=== PATIENT | female | born 2000 | race Caucasian/White ===

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

== ENCOUNTER 2023-12-12 13:12 | Inpatient (IN) ==
[2023-12-12] MEDS: NIFEdipine 10 MG CAP PO STA ×2 (13:50→17:46)
[2023-12-12] MEDS ORDERED: CALCIUM CARBONATE 500 MG CHEWABLE TAB PO PRN (13:50)
[2023-12-12] MEDS ORDERED: LIDOCAINE 1% LOCAL 20 ML VIAL INFIL PRN (13:50)
[2023-12-12] MEDS ORDERED: OXYTOCIN 30 UNITS/NSS 30 UNITS/500 ML BAG IV PRN ×2 (13:50→22:50)
[2023-12-12] MEDS ORDERED: Patient's HEIGHT &/or WEIGHT Needed STA (13:58)
[2023-12-12] MEDS: NIFEdipine 10 MG CAP ONE (14:15)
--- NOTE | 2023-12-12 14:18 | History & Physical Report ---
Date of Service December 12, 2023 Assessment & Plan (1) Encounter for induction of labor: (2) 38 weeks gestation of : (3) Poor patient attendance of care: (4) Severe preeclampsia: Plan admit, labs. iv. start magnesium, pit and kefzol for gbs unknown. urine tox for poor care. intial bps severe and improved with 20mg nifedipine and then 40mg 20min later. fhts categ 1. discussed with couple at length dx and recommendations to move toward delivery. no evidence of hsv lesions and therefore ok to proceed with vaginal delivery, pt denies sx of hsv but aware she needs to alert us if does feel sx developing as may not be able to proceed with vaginal delivery. Addendum: pt bps now not severe range. labs reviewed, hct 31% but plts normal. lfts and creat normal. magnesium infusing and pit to be started. kefzol and arom when appropriate. Admission and Anticipated Discharge Date Admission Date: December 12, 2023 History of Present Illness Chief Complaint: 23yo at 38wks dannielle presents with cc of elevated bps and poor care. She was seen in office today because she says had transportation. She notes at least a couple week history of on and off bowen's, and has taken tylenol. Today feels off, "not quite there", can have on and off visual change. Not current. Currently feels a pain in ruq but not severe but present. No epigastric pain. No n/v. Some swelling, her face in particular is swollen. She went to office for routine visit and bp markedly elevated and with these sx--was sent here. Of note also was not sure baby moving well. No vb. No rom. No ctx. She does note on and off outbreaks of hsv, last episode 2wks ago. She notes her lesions are typically at opening or clitoral [place]ledge area, none now. Patient has been poorly compliant with care. Prior visit from today was at 24wks. She states that she does not have transportation and today did drive her car to appt but her and partner only have access to one vehicle and she had dropped him off at work. 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 He is in room and does say she has complained of these sx to him and he recommended she see doctor but she refused. PNC c/b 1. poor care 2. unknown gbs status 3. genital herpes --maybe had outbreak about 2wks ago. 4. anemia PNL rh pos, ri, gbs unknown OBH: x 1 GYNH: nl paps. herpes Primary Care Provider: NO PCP Allergies Allergy/AdvReac Type Severity Reaction Status Date / Time Penicillins Allergy RASH Verified 12/12/23 13:58 Home Medications Medication Instructions Recorded Confirmed Type digital therapeutic,ANDREW device #1 ea 08/20/23 12/12/23 Rx sumatriptan 20 mg/actuation nasal 20 mg intranasal Q2H PRN migraine 08/20/23 12/12/23 Rx spray headache 30 days #6 ea Patient History Medical History (Updated 12/12/23 @ 15:28 by Kristina Ortiz MD, FACOG) Asthma Genital herpes Per patient last outbreak "a couple weeks ago" not taking medications Varicella vaccination Exercise-induced bronchospasm Surgical History No significant past surgical history Family History (Updated 06/13/23 @ 11:06 by Eloina Navarrete RN) Father Hypertension Grandfather (Paternal) Hypertension Grandmother Factor 5 Leiden mutation, heterozygous Aunt Factor 5 Leiden mutation, heterozygous Denies family history of Ovarian cancer Breast cancer Colorectal cancer Social History (Updated 12/12/23 @ 13:58 by Vickie Alexis RN) Smoking Status: Current every day smoker Tobacco Type: E-cigarettes / Vaping Age Quit Using Tobacco: 21; Do You Dip or Chew Tobacco: No; Hx Alcohol Use: No Hx Substance Use: No Preferred Language: [facility] Scheduler Required: No Beliefs That Will Affect Care: None marital status: marital status details: LUAN Lynne (24) Current Living Situation: Spouse and Family Current Living Situation Comment: ,son and step sons (50/50 custody) current occupational status: unemployed current occupation: [employer] Feels Safe at Home: Yes Assistive Devices: None Review of Systems as per Subjective / HPI Physical Exam Constitutional: WD/WN, vitals as above Respiratory: normal respiratory effort, lungs clear to auscultation Cardiovascular: Rate/Rhythm: regular rate and regular rhythm Gastrointestinal (Abdomen): soft gravid nt, no ruq or epigatric pain efw 7-8# Musculoskeletal: no edema nontender calves Neurologic: DTRS patellar +3. no clonus Psychiatric: A+Ox3, euthymic affect Genitourinary: normal external appearance; no external lesions and no external swelling Speculum/Bimanual Exam: normal appearance of the vagina and normal appearance of the cervix; no cervical lesions and no vaginal lesions Manual OB Exam: + cervical dilation (1.5), + cervical effacement 50% and + station (mid soft) -2 OB Exam Monitor Tracing: + external FHT monitor used, + external uterine monitor used (q3), + category I and + normal FHT variability PROCEDURE: GBS swab rv obtained. sse cx visualized, grasped on ant lip with ring forcep, brandt through os and balloon inflated with 40cc sterile water. Spec removed, brandt taped to leg. pt chantal well. brandt placed for continuous urine drainage as well. Results & Data Vital Signs (Past 12 Hours) Vital Signs Pulse BP 12/12/23 14:09 76 12/12/23 14:09 177/106 H 12/12/23 14:09 68 177/111 H 12/12/23 13:53 75 172/106 H 12/12/23 13:36 83 174/104 H Coding Level of Care Code None Diagnoses Encounter for induction of labor Z34.90 38 weeks gestation of Z3A.38 Poor patient attendance of care O09.30 Severe preeclampsia O14.10
[2023-12-12 14:25] LABS: Total Protein Urine Random 94.7 mg/dl (0-11.9)
[2023-12-12 14:31] LABS: Amphetamines+Metham, Urine Neg (Neg); Barbiturates, Urine Neg (Neg); Benzodiazepine, Urine Neg (Neg); Cocaine, Urine Neg (Neg); Creatinine Urine Random 63.3 mg/dl; Fentanyl, Urine Neg (Neg); MDMA (Ecstacy), Urine Neg (Neg); Marijuana, Urine Neg (Neg); Methadone, Urine Neg (Neg); Opiate, Urine Neg (Neg); Phencyclidine, Urine Neg (Neg); Protein Creatinine Ratio Urine 1.5 (0-0.2)
[2023-12-12 14:36] LABS: Hemoglobin 9.5 g/dl (12.0-16.0); Mean Corpuscular Hemoglobin 22.7 pg (25.0-34.0); Mean Corpuscular Hgb Conc 30.6 g/dL (32.0-36.0); Mean Corpuscular Volume 74.2 fL (80.0-100.0); Mean Platelet Volume 10.5 fL (9.4-12.4); Nucleated RBC # (auto) 0.04 K/uL (0.00-0.12); Nucleated RBC % (auto) 0.4 %; Platelet Count 303 K/uL (130-400); RDW Coefficient of Variation 16.9 % (11.5-14.5); RDW Standard Deviation 44.6 fL (36.4-46.3); Red Blood Count 4.18 M/uL (4.20-5.40); White Blood Count 9.48 K/ul (4.8-10.8)
[2023-12-12] MEDS ORDERED: Nursing to Pharmacy Communication SCH (14:45)
[2023-12-12 14:49] LABS: Albumin Level 3.3 gm/dl (3.4-5.0); BUN Creatinine Ratio 15.1 (10-20); Bilirubin Direct 0.1 mg/dl (0-0.2); Bilirubin,Total 0.5 mg/dl (0.2-1.0); Calcium 8.7 mg/dl (8.6-10.3); Creatinine Clr Calc Pharmacy 112.9 ml/min; Globulin 3.4 gm/dl (2.5-4.0); Total Protein 6.7 gm/dl (6.0-8.3)
[2023-12-12] MEDS: MAGNESIUM SULFATE / WTR 40 GM/1,000 ML BAG IV SCH (15:19)
[2023-12-12] MEDS: LACTATED RINGER'S 1,000 ML IV SCH (15:19)
[2023-12-12 15:20] LABS: INR 0.9 (0.9-1.1); Partial Thromboplastin Ratio 0.9; Partial Thromboplastin Time 24 Seconds (21-31)
[2023-12-12] MEDS: MAG SULFATE 4GM BOLUS FROM BAG IV ONE (15:29)
[2023-12-12] MEDS: OXYTOCIN 30 UNITS/NSS 30 UNITS/500 ML BAG IV PRN (15:48)
[2023-12-12] MEDS: ceFAZolin 2000MG 2,000 MG/15 ML SYR IV STA (16:17)
--- NOTE | 2023-12-12 17:14 | Labor Progress Brief Note ---
Date of Service December 12, 2023 Subjective has a bowen but also having pain with ctx. Assessment & Plan (1) 38 weeks gestation of : (2) Poor patient attendance of care: (3) Severe preeclampsia: (4) Encounter for induction of labor: Plan having pain and desires epidural. c/w pit and kefzol has been given (1st dose) and magnesium. latest urine output good. offered tylenol for bowen and declines Admission and Anticipated Discharge Date Admission Date: December 12, 2023 Physical Exam Constitutional: WD/WN, vitals as above Genitourinary: Manual OB Exam: + cervical dilation (brandt still palpable in os) OB Exam Monitor Tracing: + external FHT monitor used, + external uterine monitor used (q3 pit at 3), + category I and + normal FHT variability Results & Data Vital Signs (Past 12 Hours) Vital Signs Temp Pulse Resp BP Pulse Ox 12/12/23 17:09 76 97 12/12/23 17:04 78 12/12/23 17:04 75 146/86 H 98 12/12/23 16:59 80 97 12/12/23 16:54 75 98 12/12/23 16:50 77 139/85 12/12/23 16:49 79 97 12/12/23 16:44 77 98 12/12/23 16:39 80 97 12/12/23 16:34 75 140/86 97 12/12/23 16:30 20 12/12/23 16:30 20 12/12/23 16:29 85 97 12/12/23 16:24 84 97 12/12/23 16:20 97 H 142/87 H 12/12/23 16:19 84 97 12/12/23 16:14 78 97 12/12/23 16:09 78 97 12/12/23 16:05 84 137/87 12/12/23 16:04 79 97 12/12/23 15:59 81 97 12/12/23 15:54 88 97 12/12/23 15:49 79 12/12/23 15:49 82 133/83 97 12/12/23 15:44 81 97 12/12/23 15:39 81 97 12/12/23 15:34 80 97 12/12/23 15:29 77 98 12/12/23 15:24 76 97 12/12/23 15:21 71 138/90 10/25/24 15:19 20 12/12/23 15:19 77 98 12/12/23 15:15 76 136/87 12/12/23 15:14 75 98 12/12/23 15:09 73 98 12/12/23 15:04 82 97 12/12/23 14:55 80 144/85 H 12/12/23 14:35 75 144/90 H 12/12/23 14:09 76 12/12/23 14:09 177/106 H 12/12/23 14:09 68 177/111 H 12/12/23 13:53 75 172/106 H 12/12/23 13:38 98.1 F 18 12/12/23 13:36 83 174/104 H Coding Level of Care Code None Diagnoses 38 weeks gestation of Z3A.38 Poor patient attendance of care O09.30 Severe preeclampsia O14.10 Encounter for induction of labor Z34.90
[2023-12-12] MEDS: SODIUM CHLORIDE 0.9% PF INJ 10 ML VIAL ONE (17:46)
[2023-12-12] MEDS: BUPIVACAINE 0.25% PF 30 ML VIAL ONE (17:46)
[2023-12-12] MEDS: LIDOCAINE 2%/EPINEPHRINE 1:200,000 20 ML PF ONE (17:46)
[2023-12-12] MEDS: fentaNYL citrate PF 100 MCG/2 ML VIAL ONE (17:46)
[2023-12-12] MEDS: fentANYL 2 MCG/ML BUPIVacaine 0.125%-NSS 100ML BAG ONE (17:47)
[2023-12-12] MEDS ORDERED: fentaNYL citrate PF 100 MCG/2 ML VIAL EPI PRN (17:53)
[2023-12-12] MEDS ORDERED: NALOXONE HCL 0.4 MG/1 ML VIAL/CARP IV PRN (17:53)
[2023-12-12] MEDS ORDERED: LIDOCAINE 2% MPF LOCAL 5 ML VIAL EPI PRN (17:53)
[2023-12-12] MEDS ORDERED: ePHEDrine sulfate 50 MG/ML AMP IV PRN (17:53)
[2023-12-12] MEDS ORDERED: ROPIVACAINE 0.5% PF 5 MG/ML 20 ML VIAL EPI PRN (17:53)
[2023-12-12] MEDS ORDERED: fentANYL 2 MCG/ML BUPIVacaine 0.125%-NSS 100ML BAG EPI PRN (17:53)
[2023-12-12] MEDS ORDERED: diphenhydrAMINE 50 MG/ML VIAL IV PRN (17:53)
[2023-12-12] MEDS ORDERED: NALOXONE HCL 1 MG in SODIUM CHLORIDE 0.9% 1,000 ML IV PRN (17:53)
[2023-12-12] MEDS ORDERED: BUPIVACAINE 0.25% PF 30 ML VIAL EPI PRN (17:53)
[2023-12-12] MEDS ORDERED: SODIUM CHLORIDE 0.9% PF INJ 10 ML VIAL EPI PRN (17:53)
[2023-12-12] MEDS ORDERED: NALBUPHINE HCL INJ 10 MG/ML AMP IV PRN (17:53)
--- NOTE | 2023-12-12 17:53 | Anesthesiology Consultation ---
Date of Service December 12, 2023 Assessment & Plan Chart Review Chart Review: Patient NOT seen in Pre Admission Testing and Acceptable Risk for Labor Epidural Consults Requested none ASA ASA2 Proposed Anesthesia Anesthesia Type: Labor Epidural Risk / Benefits Reviewed With: PT / POA / Parent / Guardian, Accepts Plan and Informed Consent Obtained History Height/Weight Height: 5 ft 2 in Weight: 75.296 kg Allergies Allergy/AdvReac Type Severity Reaction Status Date / Time Penicillins Allergy RASH Verified 12/12/23 13:58 Medications Home Medications Medication Instructions Recorded Confirmed Last Taken digital therapeutic,ANDREW device #1 ea 08/20/23 12/12/23 Unknown sumatriptan 20 mg/actuation nasal 20 mg intranasal Q2H PRN migraine 08/20/23 12/12/23 Unknown spray headache 30 days #6 ea Active Medications Generic Name Dose Route Start Last Admin Trade Name Freq PRN Reason Stop Dose Admin Magnesium Sulfate 40 gm in 1,000 mls @ 50 mls/hr 12/12/23 15:15 12/12/23 15:52 Magnesium Sulfate / Wtr IV 01/11/24 15:14 50 mls/hr .Q20H NIKKI Infusion Oxytocin 30 units in 500 mls @ 3 mls/hr 12/12/23 15:07 12/12/23 16:30 Pitocin 30 Units/Nss IV 12/14/23 15:06 0.18 units/hr .Q24H PRN 3 mls/hr Labor Induction/Augmentation Titration Protocol 0.18 UNITS/HR Lactated Ringer's 1,000 mls @ 50 mls/hr 12/12/23 17:45 12/12/23 17:40 Lr IV 12/13/23 17:44 50 mls/hr .Q20H NIKKI Infusion Past Medical History Medical History (Updated 12/12/23 @ 15:28 by Kristina Ortiz MD, FACOG) Asthma Genital herpes Per patient last outbreak "a couple weeks ago" not taking medications Varicella vaccination Exercise-induced bronchospasm Exercise / Class Metabolic Activity II 4-5 Yardwork/Stairs/Walk up hill Past Family History Family History (Updated 06/13/23 @ 11:06 by Eloina Navarrete RN) Father Hypertension Grandfather (Paternal) Hypertension Grandmother Factor 5 Leiden mutation, heterozygous Aunt Factor 5 Leiden mutation, heterozygous Denies family history of Ovarian cancer Breast cancer Colorectal cancer Past Surgical History Surgical History No significant past surgical history Past Anesthesia History No Hx of Anesthesia Complications and No Family Hx of Anesthesia Complications History of PONV No Hx of PONV and No Hx of Motion Sickness Social History Smoking Status: Current every day smoker Do You Dip or Chew Tobacco: No Hx Alcohol Use: No Hx Substance Use: No substance use type: does not use Physical Exam Vital Signs Last Vital Signs Temp 36.7 C 12/12/23 13:38 Pulse 74 12/12/23 17:51 Resp 20 12/12/23 16:30 BP 140/81 12/12/23 17:51 Pulse Ox 97 12/12/23 17:49 ENMT Mouth: no dentition abnormality Thyromental Distance: > or= 3.5 Finger Breadths Mallampati Class: II Neck normal visual inspection Respiratory normal respiratory effort Auscultation: lungs clear to auscultation bilaterally Cardiovascular Rate/Rhythm: regular rate and regular rhythm Psychiatric Orientation: alert Testing Laboratory Results 12/12/23 14:13 12/12/23 14:13 PT 10.0 Seconds (9.0-12.0) 12/12/23 14:13 INR 0.9 (0.9-1.1) 12/12/23 14:13 APTT 24 Seconds (21-31) 12/12/23 14:13
[2023-12-12] MEDS: BUPIVACAINE 0.25% PF 30 ML VIAL EPI STA (18:01)
[2023-12-12] MEDS: fentaNYL citrate PF 100 MCG/2 ML VIAL EPI STA (18:01)
[2023-12-12] MEDS: SODIUM CHLORIDE 0.9% PF INJ 10 ML VIAL EPI STA (18:01)
[2023-12-12] MEDS: LIDOCAINE 2%/EPINEPHRINE 1:200,000 20 ML PF EPI STA (18:01)
[2023-12-12] MEDS: ePHEDrine sulfate 50 MG/ML AMP ONE (18:58)
[2023-12-12] MEDS ORDERED: ceFAZolin 1000MG 1,000 MG/7.5 ML SYR IV PRN (20:50)
--- NOTE | 2023-12-12 20:51 | Labor Progress Brief Note ---
Date of Service December 12, 2023 Subjective pt now comfortable with epidural. has mild 1/10 bowen and does not want any meds for that. no cp or sob. Assessment & Plan (1) Severe preeclampsia: (2) Poor patient attendance of care: (3) 38 weeks gestation of : (4) Encounter for induction of labor: Plan good cx change. will see how arom helps labor pattern. c/w pit, kefzol and mag. urine output good. bps in mild range at this time or normal. fhts categ 1. Admission and Anticipated Discharge Date Admission Date: December 12, 2023 Physical Exam Constitutional: WD/WN, vitals as above Genitourinary: Manual OB Exam: + cervical dilation (4.5cm), + cervical effacement 80%, + station -2 and + amniotic fluid (arom ) clear OB Exam Monitor Tracing: + external FHT monitor used (+scalp stim response. ), + external uterine monitor used, + category I and + normal FHT variability Results & Data Vital Signs (Past 12 Hours) Vital Signs Temp Pulse Resp BP Pulse Ox 12/12/23 20:44 86 95 12/12/23 20:39 78 95 12/12/23 20:36 75 148/84 H 12/12/23 20:34 74 97 12/12/23 20:29 75 96 12/12/23 20:24 73 95 12/12/23 20:21 77 132/75 12/12/23 20:19 79 97 12/12/23 20:14 87 97 12/12/23 20:09 78 97 12/12/23 20:05 76 133/78 12/12/23 20:04 81 97 12/12/23 20:00 18 12/12/23 19:59 74 97 12/12/23 19:54 77 98 12/12/23 19:51 77 134/80 12/12/23 19:49 73 97 12/12/23 19:44 73 97 12/12/23 19:39 69 97 12/12/23 19:35 77 129/78 12/12/23 19:34 79 96 12/12/23 19:29 70 96 12/12/23 19:24 71 96 12/12/23 19:20 71 135/73 12/12/23 19:19 72 96 12/12/23 19:14 71 96 12/12/23 19:10 16 12/12/23 19:10 97.9 F 16 12/12/23 19:09 73 97 12/12/23 19:05 73 140/83 12/12/23 19:04 74 95 12/12/23 19:00 97.9 F 18 12/12/23 19:00 18 12/12/23 18:59 73 97 12/12/23 18:54 73 97 12/12/23 18:50 74 137/70 12/12/23 18:49 74 97 12/12/23 18:44 66 96 12/12/23 18:39 74 97 12/12/23 18:35 61 143/86 H 12/12/23 18:34 60 96 12/12/23 18:30 18 12/12/23 18:30 18 12/12/23 18:30 18 12/12/23 18:29 61 96 12/12/23 18:24 67 97 12/12/23 18:20 67 147/85 H 12/12/23 18:19 67 98 12/12/23 18:14 65 97 12/12/23 18:09 65 96 12/12/23 18:04 75 147/82 H 95 12/12/23 18:02 99 H 149/102 H 12/12/23 18:00 20 12/12/23 18:00 75 142/79 H 12/12/23 17:59 73 96 12/12/23 17:57 64 136/79 12/12/23 17:55 68 140/79 12/12/23 17:54 74 96 12/12/23 17:53 68 144/83 H 12/12/23 17:51 74 140/81 12/12/23 17:49 70 140/82 97 12/12/23 17:47 65 144/83 H 12/12/23 17:45 20 12/12/23 17:45 67 12/12/23 17:45 77 131/85 94 12/12/23 17:44 71 95 12/12/23 17:43 63 133/86 12/12/23 17:39 82 99 12/12/23 17:34 84 99 12/12/23 17:30 18 12/12/23 17:29 79 98 12/12/23 17:24 82 98 12/12/23 17:20 80 146/91 H 12/12/23 17:19 80 98 12/12/23 17:14 70 97 12/12/23 17:09 76 97 12/12/23 17:04 78 12/12/23 17:04 75 146/86 H 98 12/12/23 16:59 80 97 12/12/23 16:54 75 98 12/12/23 16:50 77 139/85 12/12/23 16:49 79 97 12/12/23 16:44 77 98 12/12/23 16:39 80 97 12/12/23 16:34 75 140/86 97 12/12/23 16:30 20 12/12/23 16:30 20 12/12/23 16:29 85 97 12/12/23 16:24 84 97 12/12/23 16:20 97 H 142/87 H 12/12/23 16:19 84 97 12/12/23 16:14 78 97 12/12/23 16:09 78 97 12/12/23 16:05 84 137/87 12/12/23 16:04 79 97 12/12/23 15:59 81 97 12/12/23 15:54 88 97 12/12/23 15:49 79 12/12/23 15:49 82 133/83 97 12/12/23 15:44 81 97 12/12/23 15:39 81 97 12/12/23 15:34 80 97 12/12/23 15:29 77 98 12/12/23 15:24 76 97 12/12/23 15:21 71 138/90 12/12/23 15:19 20 12/12/23 15:19 77 98 12/12/23 15:15 76 136/87 12/12/23 15:14 75 98 12/12/23 15:09 73 98 12/12/23 15:04 82 97 12/12/23 15:00 98.8 F 12/12/23 14:55 80 144/85 H 12/12/23 14:35 75 144/90 H 12/12/23 14:09 76 12/12/23 14:09 177/106 H 12/12/23 14:09 68 177/111 H 12/12/23 13:53 75 172/106 H 12/12/23 13:38 98.1 F 18 12/12/23 13:36 83 174/104 H Coding Level of Care Code None Diagnoses Severe preeclampsia O14.10 Poor patient attendance of care O09.30 38 weeks gestation of Z3A.38 Encounter for induction of labor Z34.90
[2023-12-12] MEDS: ONDANSETRON INJ 2 MG/ML 2 ML VIAL IV PRN (21:58)
--- NOTE | 2023-12-12 22:39 | Delivery Summary ---
Vaginal Delivery Summary Date of Service December 12, 2023 Vaginal Delivery Summary and 2nd Degree LAC The patient dilated to complete and brandt removed. She then pushed to deliver a viable male infant Apgars 8 and 9 via over 2nd degree perineal laceration. Mouth and nose bulb suctioned at perineum. Shoulders and body delivered with ease. was vigorous and crying at . Cord clamped at 30 seconds of life and to maternal abdomen where the cord was then doubly clamped and cut. Placenta delivered spontaneously and intact, three-vessel cord. Hemostasis achieved with dilute pitocin and uterine massage. Laceration repaired in layers with 3-0 vicryl in routine fashion. Cervix and sulci intact. EBL 300 cc. Mother and baby stable in recovery. Brandt placed under sterile conditions. Patient to remain on magnesium seizure prophylaxis. She denies questions or concerns. [facility] [place] Vaginal Delivery Charge Delivery Type Details: and 2nd Degree LAC
[2023-12-12] MEDS ORDERED: oxyCODONE/ACETAMINOPHEN 5mg/325mg TAB PO PRN (22:50)
[2023-12-12] MEDS ORDERED: HYDROCORTISONE ACETATE 25 MG SUPP PR PRN (22:50)
[2023-12-12] MEDS ORDERED: ACETAMINOPHEN 325 MG TAB PO PRN (22:50)
--- NOTE | 2023-12-12 23:11 | Anesthesia Procedure Note ---
Date of Service December 12, 2023 Anesthesia Post Epidural Note Vital Signs Vital Signs: Temp Pulse Resp BP Pulse Ox 36.6 C 81 18 140/90 97 12/12/23 21:00 12/12/23 23:09 12/12/23 22:00 12/12/23 23:02 12/12/23 23:09 Pain Intensity Abdomen: Pain Intensity: 4 Notes Mental Status: alert / awake / arousable Nausea / Vomiting: adequately controlled Pain: adequately controlled Airway Patency, RR, SpO2: stable & adequate BP & HR: stable & adequate Hydration State: stable & adequate Neuraxial Anesthesia: was administered and sensory block is resolving Anesthetic Complications: no major complications apparent and Pt Satisfied with anesthetic care Epidural: Removed without complications and With tip intact
[2023-12-13] MEDS: DIPHTHER/TETAN/PERTUS Vaccine (Tdap, Adol/Adult) 0.5mL IM ONE (00:47)
[2023-12-13] MEDS: MEASLES, MUMPS & RUBELLA VIRUS VACCINE (MMR) 0.5ML VIAL SQ ONE (00:48)
[2023-12-13] MEDS: BENZOCAINE 20% SPRY 85 APPLN/85 GM CAN EXT PRN (08:11)
[2023-12-13] MEDS: PRENATAL VITAMIN 1 TAB PO SCH (08:32)
[2023-12-13] MEDS: DOCUSATE SODIUM 100 MG CAP PO SCH (08:32)
[2023-12-13] MEDS: NIFEdipine 10 MG CAP PO STA (08:36)
--- NOTE | 2023-12-13 08:37 | Obstetrical Progress Note ---
Date of Service December 13, 2023 Assessment & Plan (1) care and examination: Plan bps labile, will give immed release nifed now. will order xl nifed ongoing. no sx. cbc pending for noon. bottle, rhpos, mmr ordered. c/w mag, brandt, urine output normal. Subjective Voiding: brandt catheter in place Diet Tolerance:: regular diet Lochia:: Small Feeding Type:: bottle feeding no pain issue. does have some double vision. no cp or sob. no bowen or ruq pain. Constitutional: + as per Subjective / HPI Physical Exam Constitutional WD/WN, vitals as above Respiratory normal respiratory effort, lungs clear to auscultation Cardiovascular Rate/Rhythm: regular rate and regular rhythm Gastrointestinal (Abdomen) Inspection/Auscultation: abdomen normal to inspection Percussion/Palpation: abdomen soft Fundus firm 2cm down Musculoskeletal nt calves no pedal edema Neurologic grossly normal Psychiatric A+Ox3, euthymic affect Results & Data Vital Signs (Past 12 Hours) Vital Signs Temp Pulse Resp BP Pulse Ox 12/13/23 08:29 84 97 12/13/23 08:24 83 98 12/13/23 08:19 82 99 12/13/23 08:18 78 170/109 H 12/13/23 08:14 76 96 12/13/23 08:09 71 12/13/23 08:09 75 148/85 H 97 12/13/23 08:04 72 97 12/13/23 07:59 75 97 12/13/23 07:54 76 97 12/13/23 07:53 67 162/97 H 12/13/23 07:49 71 96 12/13/23 07:48 68 163/98 H 12/13/23 07:44 83 98 12/13/23 07:39 66 97 12/13/23 07:34 73 97 12/13/23 07:29 71 97 12/13/23 07:24 76 98 12/13/23 07:19 81 97 12/13/23 07:17 67 12/13/23 07:17 157/97 H 12/13/23 07:17 69 153/101 H 12/13/23 07:14 76 98 12/13/23 07:09 79 98 12/13/23 07:07 72 154/97 H 12/13/23 07:04 73 97 12/13/23 07:02 73 151/96 H 12/13/23 07:00 97.9 F 20 12/13/23 07:00 18 12/13/23 06:59 68 97 12/13/23 06:54 87 96 12/13/23 06:49 74 97 12/13/23 06:48 81 154/78 H 12/13/23 06:44 65 96 12/13/23 06:39 67 96 12/13/23 06:34 94 H 98 12/13/23 06:32 91 H 130/78 12/13/23 06:29 67 95 12/13/23 06:24 68 95 12/13/23 06:19 66 94 12/13/23 06:17 65 134/78 12/13/23 06:14 67 95 12/13/23 06:09 67 96 12/13/23 06:04 69 96 12/13/23 06:02 70 136/82 12/13/23 06:00 18 12/13/23 05:59 95 H 98 12/13/23 05:54 76 96 12/13/23 05:49 79 96 12/13/23 05:47 91 H 138/82 12/13/23 05:44 84 97 12/13/23 05:39 70 95 12/13/23 05:34 69 95 12/13/23 05:32 68 133/76 12/13/23 05:29 69 95 12/13/23 05:24 69 95 12/13/23 05:19 68 95 12/13/23 05:17 73 129/73 12/13/23 05:14 70 95 12/13/23 05:09 78 95 12/13/23 05:04 78 95 12/13/23 05:02 90 154/82 H 12/13/23 05:00 18 12/13/23 04:59 74 95 12/13/23 04:54 71 95 12/13/23 04:49 68 95 12/13/23 04:47 77 132/77 12/13/23 04:44 71 96 12/13/23 04:39 74 97 12/13/23 04:34 75 97 12/13/23 04:32 88 130/73 12/13/23 04:29 69 97 12/13/23 04:24 81 96 12/13/23 04:19 64 97 12/13/23 04:17 74 134/75 12/13/23 04:14 68 96 12/13/23 04:09 68 96 12/13/23 04:04 70 96 12/13/23 04:02 67 140/80 12/13/23 04:00 18 12/13/23 03:59 65 96 12/13/23 03:54 67 96 12/13/23 03:49 68 96 12/13/23 03:47 70 136/79 12/13/23 03:44 65 96 12/13/23 03:39 65 96 12/13/23 03:34 67 97 12/13/23 03:32 64 141/82 H 12/13/23 03:29 65 97 12/13/23 03:24 75 96 12/13/23 03:19 79 97 12/13/23 03:17 83 138/76 12/13/23 03:14 90 97 12/13/23 03:09 68 96 12/13/23 03:04 82 95 12/13/23 03:02 82 135/73 12/13/23 03:00 97.9 F 18 12/13/23 03:00 18 12/13/23 02:59 70 95 12/13/23 02:54 74 96 12/13/23 02:49 73 97 12/13/23 02:48 80 150/81 H 12/13/23 02:44 72 95 12/13/23 02:39 82 94 12/13/23 02:34 71 95 12/13/23 02:32 70 142/88 H 12/13/23 02:29 81 95 12/13/23 02:24 77 98 12/13/23 02:19 75 94 12/13/23 02:17 85 136/85 12/13/23 02:14 80 97 12/13/23 02:09 84 98 12/13/23 02:04 84 97 12/13/23 02:02 80 139/87 12/13/23 02:00 18 12/13/23 01:59 84 97 12/13/23 01:54 83 97 12/13/23 01:49 86 97 12/13/23 01:47 91 H 143/83 H 12/13/23 01:44 93 H 98 12/13/23 01:39 69 96 12/13/23 01:34 70 96 12/13/23 01:32 64 134/82 12/13/23 01:29 67 96 12/13/23 01:24 67 96 12/13/23 01:19 67 96 12/13/23 01:17 76 132/81 12/13/23 01:14 69 96 12/13/23 01:09 68 96 12/13/23 01:04 69 96 12/13/23 01:02 71 142/84 H 12/13/23 01:00 18 12/13/23 00:59 73 96 12/13/23 00:54 68 95 12/13/23 00:49 71 95 12/13/23 00:47 74 147/94 H 12/13/23 00:44 81 96 12/13/23 00:39 93 H 97 12/13/23 00:34 73 96 12/13/23 00:32 71 149/87 H 12/13/23 00:30 97.9 F 18 12/13/23 00:29 70 96 12/13/23 00:24 71 96 12/13/23 00:19 69 97 12/13/23 00:17 68 156/93 H 12/13/23 00:14 72 99 12/13/23 00:09 77 97 12/13/23 00:04 83 12/13/23 00:04 85 159/95 H 98 12/13/23 00:03 79 151/105 H 12/13/23 00:02 71 177/102 H 12/13/23 00:00 97.5 F L 18 12/12/23 23:59 76 93 12/12/23 23:54 72 96 12/12/23 23:49 71 96 12/12/23 23:47 71 152/97 H 12/12/23 23:44 72 98 12/12/23 23:39 74 97 12/12/23 23:34 73 97 12/12/23 23:32 82 152/98 H 12/12/23 23:30 97.5 F L 18 12/12/23 23:29 72 97 12/12/23 23:24 85 97 12/12/23 23:19 74 97 12/12/23 23:17 75 148/97 H 12/12/23 23:15 97.5 F L 18 12/12/23 23:14 77 97 12/12/23 23:09 81 97 12/12/23 23:04 77 97 12/12/23 23:02 75 140/90 12/12/23 23:00 97.5 F L 18 12/12/23 23:00 18 12/12/23 22:59 82 97 12/12/23 22:56 87 89 L 12/12/23 22:54 91 H 98 12/12/23 22:49 80 96 12/12/23 22:47 76 141/98 H 12/12/23 22:45 97.5 F L 18 12/12/23 22:44 76 95 12/12/23 22:39 76 97 12/12/23 22:34 78 96 12/12/23 22:32 75 131/75 12/12/23 22:30 97.5 F L 18 12/12/23 22:29 76 96 12/12/23 22:24 76 95 12/12/23 22:20 79 125/69 12/12/23 22:19 90 98 12/12/23 22:14 84 95 12/12/23 22:09 80 95 12/12/23 22:05 77 142/84 H 12/12/23 22:04 78 95 12/12/23 22:00 18 12/12/23 21:59 83 97 12/12/23 21:54 113 H 97 12/12/23 21:50 93 H 127/91 12/12/23 21:49 87 97 12/12/23 21:44 78 97 12/12/23 21:39 83 96 12/12/23 21:35 83 146/85 H 12/12/23 21:34 78 95 12/12/23 21:29 79 96 12/12/23 21:24 83 96 12/12/23 21:21 96 H 142/83 H 12/12/23 21:19 118 H 98 12/12/23 21:14 83 96 12/12/23 21:09 82 97 12/12/23 21:06 89 136/84 12/12/23 21:04 95 H 97 12/12/23 21:00 18 12/12/23 21:00 18 12/12/23 21:00 97.9 F 18 12/12/23 20:59 84 97 12/12/23 20:54 78 95 12/12/23 20:50 75 135/82 12/12/23 20:49 77 96 12/12/23 20:44 86 95 12/12/23 20:39 78 95 12/12/23 20:36 75 148/84 H
[2023-12-13] MEDS: NIFEdipine EXTENDED REL 30 MG TABCR PO SCH (11:01)
[2023-12-13 12:57] LABS: Hematocrit (blood only) 35.7 % (37.0-47.0); Hemoglobin 11.1 g/dl (12.0-16.0); Mean Corpuscular Hemoglobin 22.7 pg (25.0-34.0); Mean Corpuscular Hgb Conc 31.1 g/dL (32.0-36.0); Mean Corpuscular Volume 72.9 fL (80.0-100.0); Mean Platelet Volume 9.9 fL (9.4-12.4); Nucleated RBC # (auto) 0.02 K/uL (0.00-0.12); Nucleated RBC % (auto) 0.1 %; Platelet Count 232 K/uL (130-400); RDW Coefficient of Variation 17.1 % (11.5-14.5); RDW Standard Deviation 43.1 fL (36.4-46.3)
[2023-12-13] MEDS: bisacodyL 5 MG TABEC PO SCH (21:29)
[2023-12-14 02:53] VITALS: O2SAT 97
--- NOTE | 2023-12-14 08:07 | Obstetrical Progress Note ---
Date of Service December 14, 2023 Assessment & Plan (1) care and examination: the patient is doing well she has no headache no preeclampsia symptoms her blood pressures are in the normal range she is on Procardia extended release we will plan for discharge later today send prescription for Procardia advise follow-up later in the week in the office for blood pressure check Subjective Ambulation: ambulating normally Voiding: no voiding problems Passing Gas:: Yes Diet Tolerance:: regular diet Lochia:: Small Physical Exam Constitutional WD/WN, vitals as above well developed and well nourished Respiratory normal respiratory effort, lungs clear to auscultation normal respiratory effort Cardiovascular RRR, no murmur, no edema Gastrointestinal (Abdomen) normal bowel sounds, soft, nontender, no hepatosplenomegaly Results & Data Vital Signs (Past 12 Hours) Vital Signs Temp Pulse Pulse Resp BP Pulse Ox O2 Del Method 12/14/23 02:45 99.5 F 95 H 16 97 Room Air 12/13/23 21:52 98.2 F 16 98 Room Air 12/13/23 21:04 91 H 97 12/13/23 21:03 100 H 132/87 12/13/23 21:00 97.9 F 18 12/13/23 21:00 18 12/13/23 20:59 78 96 12/13/23 20:54 79 96 12/13/23 20:49 75 96 12/13/23 20:44 85 97 12/13/23 20:39 81 95 12/13/23 20:34 77 95 12/13/23 20:29 73 96 12/13/23 20:24 90 166/89 H 95 12/13/23 20:19 92 H 97 12/13/23 20:14 81 96 12/13/23 20:09 76 96
[2023-12-14] MEDS: IBUPROFEN 600 MG TAB PO PRN (08:49)
[2023-12-14 09:51] VITALS: RESP 20; TEMP 97.9
[2023-12-14] MEDS: NIFEdipine 10 MG CAP PO STA (10:17)
--- NOTE | 2023-12-14 11:58 | Communication Note ---
Date of Service: December 14, 2023 Patient and partner demandingb to leve today. Advised ama Rec f/u this week in office and to take nifedipine as prescribed
[2023-12-14 14:07] VITALS: BP 155/84; PULSE 96
== END 2023-12-14 14:13 | disposition home or self-care (01) | DRG 806 ==
LOC: OPB 13:12 → 4S1 13:15 → 4E2 12-13 21:37